=== PATIENT | male | born 1975 | race Two or more races ===

== ENCOUNTER 2016-07-30 13:08 | Inpatient (IN) | payer MEDICARE ==
[~2016-07-30] VITALS: Ht 177.8 cm; Wt 98.6 kg
[~2016-07-30 13:08] MED LIST: ALPR1TAB2 PO; CLON0.2T PO; GABA600T2 PO; HYDR-3241 PO; HYDR-3307 PO; METF500T4 PO; METH-356 PO; METO25TA35 PO; ONDA4TAB10 PO; POLY17PO5 PO; PROPOFOL 10 MG/ML, 50ML ONE
[2016-07-30 14:30] LABS: HEMOGLOBIN 14.8 g/dL (13.7-18.0)
[2016-07-30 14:42] LABS: ASPARTATE AMINO TRANSFERASE 12 U/L (15-37); BLOOD UREA NITROGEN 8 mg/dL (7-18)
[2016-07-30] MEDS ORDERED: DIPHENHYDRAMINE 50 MG/ML, 1ML IVPush SCH (15:00)
[2016-07-30] MEDS ORDERED: ACETAMINOPHEN 650 MG SUPP PR PRN (15:00)
[2016-07-30] MEDS ORDERED: LORazepam 1MG TABLET PO PRN ×2 (15:00→19:30)
[2016-07-30] MEDS ORDERED: ONDANSETRON 2MG/ML, 2ML IVPush PRN ×2 (15:00→18:00)
[2016-07-30] MEDS ORDERED: MORPHINE SULFATE 4 MG/ML, 1ML IVPush PRN (15:00)
[2016-07-30] MEDS ORDERED: POTASSIUM CHLORIDE 20 MEQ in LACTATED RINGERS 1,000 ML IV SCH (15:00)
[2016-07-30] MEDS ORDERED: hydrALAzine 20 MG/ML, 1ML IV PRN ×2 (15:00→18:00)
[2016-07-30] MEDS ORDERED: PLEASE ENTER HEIGHT AND WEIGHT MC SCH (15:00)
[2016-07-30] MEDS ORDERED: ACETAMINOPHEN 500 MG TABLET PO PRN (15:00)
[2016-07-30] MEDS ORDERED: OMNIPAQUE 350 MG/ML, 100ML BOTTLE ONE (15:56)
[2016-07-30 16:17] VITALS: BP 122/78
[2016-07-30] MEDS: PIPERACILLIN/TAZO/PMX 4.5GM 100 ML IV SCH ×2 (16:34→22:42)
[2016-07-30] MEDS ORDERED: LABETALOL 5MG/ML, 20ML IV PRN (18:00)
[2016-07-30 19:24] VITALS: BP 111/80
[2016-07-30] MEDS ORDERED: LORazepam 2 MG/ML, 1ML IV PRN (19:30)
[2016-07-30] MEDS ORDERED: SODIUM CHLORIDE 0.9%, 500ML IV PRN (19:30)
[2016-07-30] MEDS: HYDROcodone/APAP 5/325 TABLET PO PRN ×2 (20:01→23:58)
[2016-07-30] MEDS: POTASSIUM CHLORIDE 20 MEQ in D5%-0.45% NACL 1,000 ML IV SCH (20:01)
[2016-07-30] MEDS: ENOXAPARIN 40 MG/0.4 ML SQ SCH (20:01)
[2016-07-30] MEDS: INSULIN REGULAR, HUMAN 100 UNITS/ML, 3ML MEDIUM DOSE SS SQ-INSULIN SCH (21:00)
[2016-07-30] MEDS: FAMOTIDINE 20 MG/2 ML IVPush SCH (21:40)
[2016-07-30] MEDS: morphine SULFATE 10 MG/ML, 1ML IV PRN ×2 (21:41→22:29)
[2016-07-30] MEDS: GABAPENTIN 300 MG CAPSULE PO SCH (21:41)
[2016-07-30] MEDS: ONDANSETRON 2MG/ML, 2ML IV PRN (22:38)
[2016-07-31 00:05] VITALS: BP 125/73
[2016-07-31] MEDS: PIPERACILLIN/TAZO/PMX 4.5GM 100 ML IV SCH ×4 (04:07→22:23)
[2016-07-31] MEDS: HYDROcodone/APAP 5/325 TABLET PO PRN ×4 (04:08→20:43)
[2016-07-31 04:31] VITALS: BP 139/77
[2016-07-31] MEDS: ONDANSETRON 2MG/ML, 2ML IV PRN ×2 (04:46→18:01)
[2016-07-31 05:30] LABS: HEMOGLOBIN 13.1 g/dL (13.7-18.0)
[2016-07-31 05:35] LABS: BLOOD UREA NITROGEN 7 mg/dL (7-18)
[2016-07-31] MEDS: INSULIN REGULAR, HUMAN 100 UNITS/ML, 3ML MEDIUM DOSE SS SQ-INSULIN SCH ×4 (07:00→20:55)
[2016-07-31 07:16] VITALS: BP 112/86
[2016-07-31] MEDS: METHADONE 10 MG TABLET PO SCH (09:01)
[2016-07-31] MEDS: FAMOTIDINE 20 MG/2 ML IVPush SCH ×2 (09:01→20:42)
[2016-07-31] MEDS: GABAPENTIN 300 MG CAPSULE PO SCH ×2 (09:02→20:42)
[2016-07-31] MEDS: METOPROLOL TARTRATE 25 MG TABLET PO SCH (09:02)
[2016-07-31 13:06] VITALS: BP 97/61
[2016-07-31 20:26] VITALS: BP 135/89
[2016-07-31] MEDS: ENOXAPARIN 40 MG/0.4 ML SQ SCH (20:42)
[2016-08-01] MEDS: HYDROcodone/APAP 5/325 TABLET PO PRN ×3 (00:03→21:17)
[2016-08-01] MEDS: POTASSIUM CHLORIDE 20 MEQ in D5%-0.45% NACL 1,000 ML IV SCH ×2 (00:04→22:43)
[2016-08-01 01:06] VITALS: BP 132/80
[2016-08-01] MEDS: ONDANSETRON 2MG/ML, 2ML IV PRN (04:28)
[2016-08-01] MEDS: morphine SULFATE 10 MG/ML, 1ML IV PRN ×3 (04:28→13:52)
[2016-08-01] MEDS: PIPERACILLIN/TAZO/PMX 4.5GM 100 ML IV SCH ×4 (04:28→21:15)
[2016-08-01 05:51] LABS: HEMOGLOBIN 12.3 g/dL (13.7-18.0)
[2016-08-01] MEDS: INSULIN REGULAR, HUMAN 100 UNITS/ML, 3ML MEDIUM DOSE SS SQ-INSULIN SCH ×4 (07:37→21:00)
[2016-08-01 08:08] VITALS: BP 126/72
[2016-08-01] MEDS: METOPROLOL TARTRATE 25 MG TABLET PO SCH (09:00)
[2016-08-01] MEDS: FAMOTIDINE 20 MG/2 ML IVPush SCH ×2 (09:00→21:14)
[2016-08-01] MEDS: METHADONE 10 MG TABLET PO SCH (09:00)
[2016-08-01] MEDS: GABAPENTIN 300 MG CAPSULE PO SCH ×2 (09:00→21:14)
[2016-08-01] MEDS ORDERED: FENTANYL PF 250 MCG/5ML ONE (10:05)
[2016-08-01] MEDS ORDERED: MIDAZOLAM 1 MG/ML, 2ML ONE (10:05)
[2016-08-01] MEDS ORDERED: METOPROLOL 1 MG/ML, 5ML ONE (10:08)
[2016-08-01] MEDS ORDERED: PROPOFOL 10 MG/ML, 20ML ONE (10:08)
[2016-08-01] MEDS ORDERED: PROPOFOL 10 MG/ML, 50ML ONE (10:08)
[2016-08-01] MEDS ORDERED: HYDROmorphone 1 MG/ML, 1ML IV PRN (11:00)
[2016-08-01] MEDS ORDERED: FENTANYL PF 100 MCG/2ML IV PRN (11:00)
[2016-08-01] MEDS ORDERED: ALBUTEROL/IPRATROPIUM 2.5MG/0.5MG, 3 ML NPPB PRN (11:00)
[2016-08-01] MEDS ORDERED: OXYcodone 5 MG/5 ML ORAL.SOL UDC PO PRN (11:00)
[2016-08-01] MEDS ORDERED: METOPROLOL 1 MG/ML, 5ML IV PRN (11:00)
[2016-08-01] MEDS ORDERED: ACETAMINOPHEN 325 MG TABLET PO PRN (11:00)
[2016-08-01 12:21] VITALS: BP 122/81
[2016-08-01] MEDS ORDERED: MORPHINE SULFATE 4 MG/ML, 1ML ONE (13:50)
[2016-08-01 14:46] VITALS: BP 125/65
[2016-08-01 19:40] VITALS: BP 107/60
[2016-08-01] MEDS: ENOXAPARIN 40 MG/0.4 ML SQ SCH (21:15)
[2016-08-02 00:16] VITALS: BP 126/71
[2016-08-02] MEDS: PIPERACILLIN/TAZO/PMX 4.5GM 100 ML IV SCH ×4 (04:17→21:57)
[2016-08-02 05:12] VITALS: BP 116/71
[2016-08-02] MEDS: INSULIN REGULAR, HUMAN 100 UNITS/ML, 3ML MEDIUM DOSE SS SQ-INSULIN SCH ×2 (07:00→11:00)
[2016-08-02 07:50] VITALS: BP 110/77
[2016-08-02 07:52] VITALS: BP 140/73
[2016-08-02] MEDS: FAMOTIDINE 20 MG/2 ML IVPush SCH ×2 (08:21→20:33)
[2016-08-02] MEDS: GABAPENTIN 300 MG CAPSULE PO SCH ×2 (08:21→20:33)
[2016-08-02] MEDS: METOPROLOL TARTRATE 25 MG TABLET PO SCH (08:21)
[2016-08-02] MEDS: HYDROcodone/APAP 5/325 TABLET PO PRN ×2 (08:22→20:35)
[2016-08-02] MEDS: METHADONE 10 MG TABLET PO SCH (08:22)
[2016-08-02 13:01] VITALS: BP 111/67
[2016-08-02] MEDS: ALPRazolam 1MG TABLET PO PRN (15:34)
[2016-08-02] MEDS: POTASSIUM CHLORIDE 20 MEQ in D5%-0.45% NACL 1,000 ML IV SCH (16:00)
[2016-08-02 19:33] VITALS: BP 121/69
[2016-08-02] MEDS: ENOXAPARIN 40 MG/0.4 ML SQ SCH (20:33)
[2016-08-03] MEDS: FAMOTIDINE 20 MG TABLET PO SCH ×3 (00:15→21:00)
[2016-08-03] MEDS: GABAPENTIN 300 MG CAPSULE PO SCH ×3 (00:15→21:00)
[2016-08-03] MEDS: PIPERACILLIN/TAZO/PMX 4.5GM 100 ML IV SCH ×3 (04:14→18:00)
[2016-08-03 04:32] VITALS: BP 118/71
[2016-08-03] MEDS: morphine SULFATE 10 MG/ML, 1ML IV PRN (05:55)
[2016-08-03 07:10] VITALS: BP 128/77
[2016-08-03] MEDS ORDERED: VANCOMYCIN PER PHARMACY MC PRN (08:30)
[2016-08-03] MEDS ORDERED: PHARMACOKINETIC MONITORING MC PRN (09:00)
[2016-08-03] MEDS ORDERED: PHARMACOKINETIC CONSULTATION MC ONE (09:00)
[2016-08-03] MEDS: POTASSIUM CHLORIDE 20 MEQ in D5%-0.45% NACL 1,000 ML IV SCH (09:47)
[2016-08-03] MEDS: VANCOMYCIN 2,000 MG in SODIUM CHLORIDE 0.9% 500 ML IV SCH ×2 (09:47→21:00)
[2016-08-03] MEDS: METOPROLOL TARTRATE 25 MG TABLET PO SCH (09:47)
[2016-08-03] MEDS: METHADONE 10 MG TABLET PO SCH (09:48)
[2016-08-03] MEDS: HYDROcodone/APAP 5/325 TABLET PO PRN ×2 (09:50→13:55)
[2016-08-03] MEDS ORDERED: PROPOFOL 10 MG/ML, 20ML ONE (10:15)
[2016-08-03] MEDS: DIPHENHYDRAMINE 12.5MG/5ML, 10ML UDC PO PRN (12:12)
[2016-08-03 15:00] VITALS: BP 127/73
[2016-08-03 19:58] VITALS: BP 131/79
[2016-08-03] MEDS: ENOXAPARIN 40 MG/0.4 ML SQ SCH (20:00)
[2016-08-03] MEDS ORDERED: LABETALOL 5MG/ML, 20ML IV PRN (22:30)
[2016-08-03] MEDS ORDERED: FENTANYL PF 100 MCG/2ML IV PRN (22:30)
[2016-08-03] MEDS ORDERED: hydrALAzine 20 MG/ML, 1ML IV PRN (22:30)
[2016-08-03] MEDS ORDERED: METOCLOPRAMIDE 5 MG/ML, 2ML IV PRN (22:30)
[2016-08-03] MEDS ORDERED: ACETAMINOPHEN 325 MG TABLET PO PRN (22:30)
[2016-08-03] MEDS ORDERED: OXYcodone 5 MG/5 ML ORAL.SOL UDC PO PRN (22:30)
[2016-08-03] MEDS ORDERED: HYDROmorphone 1 MG/ML, 1ML IV PRN (22:30)
[2016-08-03] MEDS ORDERED: MIDAZOLAM 1 MG/ML, 2ML IV PRN (22:30)
[2016-08-03] MEDS ORDERED: PROMETHAZINE 25 MG/ML, 1ML IV PRN (22:30)
[2016-08-03] MEDS ORDERED: ONDANSETRON 2MG/ML, 2ML IVPush PRN (22:30)
[2016-08-03] MEDS ORDERED: MEPERIDINE/PF 25MG/0.5ML IVPush PRN (22:30)
[2016-08-03] MEDS ORDERED: MEPERIDINE/PF 25MG/0.5ML ONE (22:44)
[2016-08-04] MEDS: PIPERACILLIN/TAZO/PMX 4.5GM 100 ML IV SCH ×4 (00:15→18:26)
[2016-08-04] MEDS: DIPHENHYDRAMINE 12.5MG/5ML, 10ML UDC PO PRN ×2 (00:15→11:17)
[2016-08-04] MEDS: HYDROcodone/APAP 5/325 TABLET PO PRN ×6 (00:15→22:15)
[2016-08-04] MEDS: ONDANSETRON 2MG/ML, 2ML IV PRN (00:15)
[2016-08-04] MEDS: VANCOMYCIN 2,000 MG in SODIUM CHLORIDE 0.9% 500 ML IV SCH ×2 (01:00→13:09)
[2016-08-04 04:08] VITALS: BP 136/74
[2016-08-04 07:13] VITALS: BP 122/74
[2016-08-04] MEDS: FAMOTIDINE 20 MG TABLET PO SCH ×2 (09:00→21:30)
[2016-08-04] MEDS: METHADONE 10 MG TABLET PO SCH (09:00)
[2016-08-04] MEDS: METOPROLOL TARTRATE 25 MG TABLET PO SCH (09:00)
[2016-08-04] MEDS: GABAPENTIN 300 MG CAPSULE PO SCH ×2 (09:00→21:30)
[2016-08-04] MEDS ORDERED: DIPHENHYDRAMINE 25 MG CAPSULE PO PRN ×2 (11:22→17:22)
[2016-08-04] MEDS: DIPHENHYDRAMINE 25 MG CAPSULE PO PRN (12:15)
[2016-08-04] MEDS: POTASSIUM CHLORIDE 20 MEQ in D5%-0.45% NACL 1,000 ML IV SCH (13:09)
[2016-08-04 13:43] VITALS: BP 123/71
[2016-08-04 19:26] VITALS: BP 115/65
[2016-08-04] MEDS: ENOXAPARIN 40 MG/0.4 ML SQ SCH (21:30)
[2016-08-05] MEDS: PIPERACILLIN/TAZO/PMX 4.5GM 100 ML IV SCH ×5 (00:22→23:51)
[2016-08-05] MEDS: DIPHENHYDRAMINE 25 MG CAPSULE PO PRN ×2 (00:55→13:40)
[2016-08-05] MEDS: VANCOMYCIN 2,000 MG in SODIUM CHLORIDE 0.9% 500 ML IV SCH ×2 (00:58→13:39)
[2016-08-05 01:52] VITALS: BP 121/63
[2016-08-05] MEDS: HYDROcodone/APAP 5/325 TABLET PO PRN ×4 (06:22→22:01)
[2016-08-05 08:15] VITALS: BP 142/83
[2016-08-05] MEDS: METOPROLOL TARTRATE 25 MG TABLET PO SCH (09:15)
[2016-08-05] MEDS: FAMOTIDINE 20 MG TABLET PO SCH ×2 (09:15→22:00)
[2016-08-05] MEDS: GABAPENTIN 300 MG CAPSULE PO SCH ×2 (09:15→22:00)
[2016-08-05] MEDS: METHADONE 10 MG TABLET PO SCH (09:15)
[2016-08-05] MEDS: ALPRazolam 1MG TABLET PO PRN (10:13)
[2016-08-05 13:24] VITALS: BP 109/67
[2016-08-05] MEDS: POTASSIUM CHLORIDE 20 MEQ in D5%-0.45% NACL 1,000 ML IV SCH (13:42)
[2016-08-05 18:51] VITALS: BP 138/77
[2016-08-05] MEDS: ENOXAPARIN 40 MG/0.4 ML SQ SCH (22:01)
[2016-08-05] MEDS: morphine SULFATE 10 MG/ML, 1ML IV PRN (23:50)
[2016-08-06 03:50] VITALS: BP 154/82
[2016-08-06] MEDS: PIPERACILLIN/TAZO/PMX 4.5GM 100 ML IV SCH ×3 (06:00→18:07)
[2016-08-06] MEDS ORDERED: PROPOFOL 10 MG/ML, 20ML ONE (06:55)
[2016-08-06] MEDS ORDERED: LABETALOL 5MG/ML, 20ML IV PRN (08:30)
[2016-08-06] MEDS ORDERED: FENTANYL PF 100 MCG/2ML IV PRN (08:30)
[2016-08-06] MEDS ORDERED: HYDROmorphone 1 MG/ML, 1ML IV PRN (08:30)
[2016-08-06] MEDS ORDERED: OXYcodone 5 MG/5 ML ORAL.SOL UDC PO PRN (08:30)
[2016-08-06] MEDS ORDERED: hydrALAzine 20 MG/ML, 1ML IV PRN (08:30)
[2016-08-06] MEDS ORDERED: PROMETHAZINE 25 MG/ML, 1ML IV PRN (08:30)
[2016-08-06] MEDS ORDERED: ONDANSETRON 2MG/ML, 2ML IVPush PRN (08:30)
[2016-08-06] MEDS ORDERED: MIDAZOLAM 1 MG/ML, 2ML IV PRN (08:30)
[2016-08-06 08:36] VITALS: BP 169/99
[2016-08-06] MEDS: METOPROLOL TARTRATE 25 MG TABLET PO SCH (08:38)
[2016-08-06] MEDS: METHADONE 10 MG TABLET PO SCH (08:39)
[2016-08-06] MEDS: GABAPENTIN 300 MG CAPSULE PO SCH ×2 (08:39→21:30)
[2016-08-06] MEDS: FAMOTIDINE 20 MG TABLET PO SCH ×2 (08:39→21:30)
[2016-08-06] MEDS: HYDROcodone/APAP 5/325 TABLET PO PRN ×4 (08:43→23:33)
[2016-08-06] MEDS: POTASSIUM CHLORIDE 20 MEQ in D5%-0.45% NACL 1,000 ML IV SCH (14:00)
[2016-08-06 16:15] VITALS: BP 149/79
[2016-08-06 18:44] VITALS: BP 127/73
[2016-08-06] MEDS: morphine SULFATE 10 MG/ML, 1ML IV PRN (21:30)
[2016-08-06] MEDS: ENOXAPARIN 40 MG/0.4 ML SQ SCH (21:34)
[2016-08-06 23:43] VITALS: BP 130/82
[2016-08-07] MEDS: PIPERACILLIN/TAZO/PMX 4.5GM 100 ML IV SCH ×4 (00:37→20:26)
[2016-08-07] MEDS: HYDROcodone/APAP 5/325 TABLET PO PRN ×5 (03:39→21:48)
[2016-08-07 07:35] VITALS: BP 145/85
[2016-08-07] MEDS: FAMOTIDINE 20 MG TABLET PO SCH ×2 (08:14→20:26)
[2016-08-07] MEDS: GABAPENTIN 300 MG CAPSULE PO SCH ×2 (08:14→20:26)
[2016-08-07] MEDS: METOPROLOL TARTRATE 25 MG TABLET PO SCH (08:14)
[2016-08-07] MEDS: METHADONE 10 MG TABLET PO SCH (09:11)
[2016-08-07] MEDS ORDERED: VANCOMYCIN 2,000 MG in SODIUM CHLORIDE 0.9% 500 ML IV ONE (11:00)
[2016-08-07] MEDS: morphine SULFATE 10 MG/ML, 1ML IV PRN ×3 (11:22→20:25)
[2016-08-07] MEDS: DIPHENHYDRAMINE 25 MG CAPSULE PO PRN (11:22)
[2016-08-07 18:33] VITALS: BP 149/87
[2016-08-07] MEDS: POTASSIUM CHLORIDE 20 MEQ in D5%-0.45% NACL 1,000 ML IV SCH (20:26)
[2016-08-07] MEDS: ENOXAPARIN 40 MG/0.4 ML SQ SCH (21:48)
[2016-08-08 00:52] VITALS: BP 121/65
[2016-08-08] MEDS: HYDROcodone/APAP 5/325 TABLET PO PRN ×6 (01:32→22:25)
[2016-08-08] MEDS: PIPERACILLIN/TAZO/PMX 4.5GM 100 ML IV SCH ×4 (02:28→20:52)
[2016-08-08] MEDS: morphine SULFATE 10 MG/ML, 1ML IV PRN ×3 (05:10→20:53)
[2016-08-08 07:07] VITALS: BP 144/79
[2016-08-08] MEDS: METOPROLOL TARTRATE 25 MG TABLET PO SCH (07:44)
[2016-08-08] MEDS: FAMOTIDINE 20 MG TABLET PO SCH ×2 (07:44→20:52)
[2016-08-08] MEDS: GABAPENTIN 300 MG CAPSULE PO SCH ×2 (07:44→21:14)
[2016-08-08] MEDS: METHADONE 10 MG TABLET PO SCH (07:45)
[2016-08-08 15:12] VITALS: BP 132/74
[2016-08-08 18:58] VITALS: BP 155/77
[2016-08-08] MEDS: POTASSIUM CHLORIDE 20 MEQ in D5%-0.45% NACL 1,000 ML IV SCH (20:52)
[2016-08-08] MEDS: ENOXAPARIN 40 MG/0.4 ML SQ SCH (20:52)
[2016-08-08] MEDS: ALPRazolam 1MG TABLET PO PRN (22:25)
[2016-08-09] MEDS: PIPERACILLIN/TAZO/PMX 4.5GM 100 ML IV SCH ×4 (02:20→20:22)
[2016-08-09] MEDS: morphine SULFATE 10 MG/ML, 1ML IV PRN ×3 (03:31→20:23)
[2016-08-09 03:34] VITALS: BP 125/75
[2016-08-09 05:41] LABS: ASPARTATE AMINO TRANSFERASE 10 U/L (15-37); BLOOD UREA NITROGEN 12 mg/dL (7-18)
[2016-08-09] MEDS ORDERED: VANCOMYCIN 2,000 MG in SODIUM CHLORIDE 0.9% 500 ML IV ONE (06:00)
[2016-08-09] MEDS: DIPHENHYDRAMINE 25 MG CAPSULE PO PRN (06:11)
[2016-08-09] MEDS: HYDROcodone/APAP 5/325 TABLET PO PRN ×2 (06:16→22:52)
[2016-08-09 07:49] VITALS: BP 150/84
[2016-08-09] MEDS: METOPROLOL TARTRATE 25 MG TABLET PO SCH (08:43)
[2016-08-09] MEDS: GABAPENTIN 300 MG CAPSULE PO SCH ×2 (08:43→20:22)
[2016-08-09] MEDS: FAMOTIDINE 20 MG TABLET PO SCH ×2 (08:43→20:22)
[2016-08-09] MEDS: METHADONE 10 MG TABLET PO SCH (08:45)
[2016-08-09 13:41] VITALS: BP 115/70
[2016-08-09] MEDS ORDERED: FENTANYL PF 250 MCG/5ML ONE (15:15)
[2016-08-09] MEDS ORDERED: MIDAZOLAM 1 MG/ML, 2ML ONE (15:16)
[2016-08-09] MEDS ORDERED: PROPOFOL 10 MG/ML, 20ML ONE (15:55)
[2016-08-09] MEDS ORDERED: PROPOFOL 10 MG/ML, 50ML ONE (15:55)
[2016-08-09] MEDS ORDERED: NITROGLYCERIN 5 MG/ML, 10ML ONE (15:58)
[2016-08-09] MEDS ORDERED: ALBUTEROL SULFATE 2.5 MG/3 ML NPPB PRN (17:30)
[2016-08-09] MEDS ORDERED: LABETALOL 5MG/ML, 20ML IV PRN (17:30)
[2016-08-09] MEDS ORDERED: FENTANYL PF 100 MCG/2ML IV PRN (17:30)
[2016-08-09] MEDS ORDERED: hydrALAzine 20 MG/ML, 1ML IV PRN (17:30)
[2016-08-09] MEDS ORDERED: HYDROcodone/APAP 7.5-325MG/15ML UDC PO PRN (17:30)
[2016-08-09] MEDS ORDERED: HYDROmorphone 1 MG/ML, 1ML IV PRN (17:30)
[2016-08-09] MEDS ORDERED: ACETAMINOPHEN 325 MG TABLET PO PRN (17:30)
[2016-08-09] MEDS ORDERED: ONDANSETRON 2MG/ML, 2ML IVPush PRN (17:30)
[2016-08-09 19:25] VITALS: BP 121/66
[2016-08-09] MEDS: ENOXAPARIN 40 MG/0.4 ML SQ SCH (20:22)
[2016-08-09 23:21] VITALS: BP 104/65
[2016-08-10] MEDS: PIPERACILLIN/TAZO/PMX 4.5GM 100 ML IV SCH ×2 (02:28→08:44)
[2016-08-10] MEDS: POTASSIUM CHLORIDE 20 MEQ in D5%-0.45% NACL 1,000 ML IV SCH (02:29)
[2016-08-10] MEDS: morphine SULFATE 10 MG/ML, 1ML IV PRN ×3 (02:41→11:48)
[2016-08-10 03:01] VITALS: BP 144/68
[2016-08-10] MEDS: HYDROcodone/APAP 5/325 TABLET PO PRN (06:34)
[2016-08-10 07:22] VITALS: BP 134/76
[2016-08-10] MEDS: FAMOTIDINE 20 MG TABLET PO SCH (08:47)
[2016-08-10] MEDS: GABAPENTIN 300 MG CAPSULE PO SCH (08:47)
[2016-08-10] MEDS: METOPROLOL TARTRATE 25 MG TABLET PO SCH (08:47)
[2016-08-10] MEDS: METHADONE 10 MG TABLET PO SCH (08:47)
[2016-08-10 14:41] VITALS: BP 136/79
== END 2016-08-10 15:23 | disposition home or self-care (01) | DRG 857 ==
LOC: 4NOR 13:18
PROVIDERS: ADMIT Surgery; ATTEND Surgery
PROC: 0JB80ZZ Excision of Abdomen Subcutaneous Tissue and Fascia, Open Approach (ICD-10-PCS; 2016-07-30)
PROC: 0JQ80ZZ Repair Abdomen Subcutaneous Tissue and Fascia, Open Approach (ICD-10-PCS; principal; 2016-07-30 17:00)
PROC: 2W03X6Z Change Pressure Dressing on Abdominal Wall (ICD-10-PCS; 2016-08-03)
PROC: 0HQ7XZZ Repair Abdomen Skin, External Approach (ICD-10-PCS; 2016-08-03)
PROC: 0JB80ZZ Excision of Abdomen Subcutaneous Tissue and Fascia, Open Approach (ICD-10-PCS; 2016-08-06)
PROC: 02HV33Z Insertion of Infusion Device into Superior Vena Cava, Percutaneous Approach (ICD-10-PCS; 2016-08-06)
PROC: B5181ZA Fluoroscopy of Superior Vena Cava using Low Osmolar Contrast, Guidance (ICD-10-PCS; 2016-08-06)
PROC: 0JB80ZZ Excision of Abdomen Subcutaneous Tissue and Fascia, Open Approach (ICD-10-PCS; 2016-08-09)
PROC: 2W13X6Z Compression of Abdominal Wall using Pressure Dressing (ICD-10-PCS; 2016-08-09)
DX: T81.4XXA Infection following a procedure, initial encounter (principal); T81.31XA Disruption of external operation (surgical) wound, not elsewhere classified, initial encounter; G82.20 Paraplegia, unspecified; E44.0 Moderate protein-calorie malnutrition; E11.9 Type 2 diabetes mellitus without complications; Y84.9 Medical procedure, unspecified as the cause of abnormal reaction of the patient, or of later complication, without mention of misadventure at the time of the procedure; E66.01 Morbid (severe) obesity due to excess calories; B95.62 Methicillin resistant Staphylococcus aureus infection as the cause of diseases classified elsewhere; F17.210 Nicotine dependence, cigarettes, uncomplicated; I10 Essential (primary) hypertension; J44.9 Chronic obstructive pulmonary disease, unspecified; K43.5 Parastomal hernia without obstruction or gangrene; Z88.0 Allergy status to penicillin; Z68.31 Body mass index [BMI] 31.0-31.9, adult; Y92.9 Unspecified place or not applicable; Z98.890 Other specified postprocedural states; Z71.6 Tobacco abuse counseling
CPT/HCPCS: 36415; 36569; 74177; 76937; 77001; 80048; 80053; 80202; 82040; 82565; 82962; 83735; 84100; 85025; 85610; 85730; 87070; 87075; 87077; 87186; 87205; J1650; J2175; J2250; J2405; J2543; J2704; J3010; J3370; J3480; Q9967; C1751; J2270; J7040; J7120; Q0163; S0028

== ENCOUNTER 2016-08-24 08:15 | Inpatient (IN) | payer MEDICARE ==
[~2016-08-24] VITALS: Ht 180.3 cm; Wt 100.6 kg
[~2016-08-24 08:15] MED LIST changes: -PROPOFOL 10 MG/ML, 50ML ONE
[2016-08-24] MEDS ORDERED: LIDOCAINE 1%, 2ML ONE (08:52)
[2016-08-24 09:11] VITALS: BP 101/66
[2016-08-24] MEDS ORDERED: LACTATED RINGERS 1,000 ML IV SCH (09:18)
[2016-08-24] MEDS ORDERED: LIDOCAINE 1%, 2ML SQ PRN (09:30)
[2016-08-24] MEDS ORDERED: HYDROmorphone 2 MG/ML, 1ML ONE ×2 (09:38→15:42)
[2016-08-24] MEDS ORDERED: FENTANYL PF 250 MCG/5ML ONE (09:38)
[2016-08-24] MEDS ORDERED: MIDAZOLAM 1 MG/ML, 2ML ONE (09:38)
[2016-08-24] MEDS ORDERED: EPINEPHRINE 1 MG/ML, 1ML ONE (10:13)
[2016-08-24] MEDS ORDERED: NITROGLYCERIN 5 MG/ML, 10ML ONE (10:13)
[2016-08-24] MEDS ORDERED: DEXAMETHASONE 4 MG/ML, 1ML ONE (10:35)
[2016-08-24] MEDS ORDERED: ROCURONIUM 10 MG/ML ONE (10:35)
[2016-08-24] MEDS ORDERED: PROPOFOL 10 MG/ML, 20ML ONE (10:35)
[2016-08-24] MEDS ORDERED: ESMOLOL 100 MG/10 ML ONE (10:35)
[2016-08-24] MEDS ORDERED: EPHEDRINE 50 MG/ML, 1ML ONE (10:35)
[2016-08-24] MEDS ORDERED: CEFAZOLIN 1,000 MG ONE (10:35)
[2016-08-24] MEDS ORDERED: ONDANSETRON 2MG/ML, 2ML ONE (10:35)
[2016-08-24] MEDS ORDERED: PHENYLEPHRINE 10 MG/ML ONE (10:35)
[2016-08-24] MEDS ORDERED: GLYCOPYRROLATE 0.2MG/1ML ONE (10:35)
[2016-08-24] MEDS ORDERED: NEOSTIGMINE 1 MG/ML, 10ML ONE (10:35)
[2016-08-24] MEDS ORDERED: MEPERIDINE/PF 25MG/0.5ML IVPush PRN (11:30)
[2016-08-24] MEDS ORDERED: FENTANYL PF 100 MCG/2ML IV PRN (11:30)
[2016-08-24] MEDS ORDERED: METOCLOPRAMIDE 5 MG/ML, 2ML IV PRN (11:30)
[2016-08-24] MEDS ORDERED: ACETAMINOPHEN 325 MG TABLET PO PRN ×2 (11:30→18:00)
[2016-08-24] MEDS ORDERED: LABETALOL 5MG/ML, 20ML IV PRN (11:30)
[2016-08-24] MEDS ORDERED: MIDAZOLAM 1 MG/ML, 2ML IV PRN (11:30)
[2016-08-24] MEDS ORDERED: OXYcodone 5 MG/5 ML ORAL.SOL UDC PO PRN (11:30)
[2016-08-24] MEDS ORDERED: PROMETHAZINE 25 MG/ML, 1ML IV PRN (11:30)
[2016-08-24] MEDS ORDERED: hydrALAzine 20 MG/ML, 1ML IV PRN ×2 (11:30→18:00)
[2016-08-24] MEDS ORDERED: ONDANSETRON 2MG/ML, 2ML IVPush PRN (11:30)
[2016-08-24] MEDS ORDERED: OXYMETAZOLINE NASAL SPRAY 0.05%, 15ML ONE (14:56)
[2016-08-24 14:57] LABS: HEMOGLOBIN 12.3 g/dL (13.7-18.0)
[2016-08-24 15:12] LABS: BLOOD UREA NITROGEN 13 mg/dL (7-18)
[2016-08-24 15:23] LABS: DIFF TOTAL CELLS COUNTED 100 CELL DIFF
[2016-08-24 15:25] LABS: VERIFY COUNTS? YES
[2016-08-24] MEDS: HYDROmorphone 1 MG/ML, 1ML IV PRN ×7 (15:30→22:01)
[2016-08-24] MEDS ORDERED: DIPHENHYDRAMINE 25 MG CAPSULE PO PRN (18:00)
[2016-08-24] MEDS ORDERED: ALPRazolam 1MG TABLET PO PRN (18:00)
[2016-08-24] MEDS ORDERED: SODIUM CHLORIDE 0.9%, 500ML IV PRN (18:00)
[2016-08-24] MEDS ORDERED: ACETAMINOPHEN 650 MG SUPP PR PRN (18:00)
[2016-08-24] MEDS ORDERED: LORazepam 2 MG/ML, 1ML IV PRN (18:00)
[2016-08-24] MEDS: ENOXAPARIN 40 MG/0.4 ML SQ SCH (19:02)
[2016-08-24 19:45] VITALS: BP 136/78
[2016-08-24] MEDS ORDERED: BENZOCAINE AEROSOL SPRAY 20%, 60ML TP ONE (21:30)
[2016-08-24] MEDS: GABAPENTIN 300 MG CAPSULE PO SCH (22:00)
[2016-08-24] MEDS ORDERED: VANCOMYCIN PMX 1GM/200ML 200 ML IVPB ONE (23:00)
[2016-08-24] MEDS: DIPHENHYDRAMINE 50 MG/ML, 1ML IV PRN (23:21)
[2016-08-24 23:54] VITALS: BP 136/47
[2016-08-25] VITALS (10 sets, daily range): BP systolic 90–120; BP diastolic 52–70
[2016-08-25] MEDS: HYDROmorphone 1 MG/ML, 1ML IV PRN ×6 (00:17→18:26)
[2016-08-25] MEDS: LACTATED RINGERS 1,000 ML IV SCH ×2 (00:18→18:24)
[2016-08-25] MEDS: ONDANSETRON 2MG/ML, 2ML IV PRN ×2 (02:14→18:36)
[2016-08-25 05:56] LABS: HEMOGLOBIN 11.6 g/dL (13.7-18.0)
[2016-08-25 06:09] LABS: BLOOD UREA NITROGEN 12 mg/dL (7-18)
[2016-08-25 06:16] LABS: DIFF TOTAL CELLS COUNTED 100 CELL DIFF
[2016-08-25 06:18] LABS: VERIFY COUNTS? YES
[2016-08-25 06:19] LABS: POLYCHROMASIA 1+
[2016-08-25] MEDS ORDERED: LACTATED RINGERS 1,000 ML IVBOLUS ONE ×2 (07:30→09:00)
[2016-08-25] MEDS: METOPROLOL TARTRATE 25 MG TABLET PO SCH ×2 (09:00→10:04)
[2016-08-25] MEDS: GABAPENTIN 300 MG CAPSULE PO SCH ×2 (09:36→20:17)
[2016-08-25] MEDS: METHADONE 10 MG TABLET PO SCH (09:36)
[2016-08-25] MEDS: ENOXAPARIN 40 MG/0.4 ML SQ SCH (19:20)
[2016-08-25] MEDS: LORazepam 1MG TABLET PO PRN ×2 (19:21→20:17)
[2016-08-25] MEDS: LABETALOL 5MG/ML, 20ML IVPush PRN (23:59)
[2016-08-26 00:11] LABS: IS PT STATUS REG ER OR PRE ER? NO
[2016-08-26] MEDS: ONDANSETRON 2MG/ML, 2ML IV PRN ×3 (00:37→18:42)
[2016-08-26 00:41] VITALS: BP 98/63
[2016-08-26 02:25] VITALS: BP 102/64
[2016-08-26 03:55] VITALS: BP 103/58
[2016-08-26] MEDS: LACTATED RINGERS 1,000 ML IV SCH ×3 (04:37→19:53)
[2016-08-26] MEDS ORDERED: LACTATED RINGERS 500 ML IVBOLUS ONE (05:00)
[2016-08-26 05:57] LABS: HEMOGLOBIN 10.8 g/dL (13.7-18.0)
[2016-08-26 06:24] LABS: BLOOD UREA NITROGEN 19 mg/dL (7-18)
[2016-08-26 07:21] VITALS: BP 136/63
[2016-08-26] MEDS: LABETALOL 5MG/ML, 20ML IVPush PRN ×2 (07:34→17:33)
[2016-08-26] MEDS: PROMETHAZINE 25 MG/ML, 1ML IM PRN ×4 (07:35→21:38)
[2016-08-26] MEDS: GABAPENTIN 300 MG CAPSULE PO SCH ×2 (09:00→20:24)
[2016-08-26] MEDS: METHADONE 10 MG TABLET PO SCH (09:00)
[2016-08-26 13:30] VITALS: BP 147/71
[2016-08-26] MEDS ORDERED: PHARMACOKINETIC MONITORING MC PRN (16:30)
[2016-08-26] MEDS ORDERED: VANCOMYCIN PER PHARMACY MC PRN (16:30)
[2016-08-26] MEDS: CEFTRIAXONE PMX 2GM/50ML 50 ML IV SCH (17:31)
[2016-08-26] MEDS: DIPHENHYDRAMINE 50 MG/ML, 1ML IV PRN (17:54)
[2016-08-26 18:40] VITALS: BP 128/66
[2016-08-26] MEDS: METRONIDAZOLE PMX 500MG/100ML 100 ML IV SCH (18:42)
[2016-08-26] MEDS: ENOXAPARIN 40 MG/0.4 ML SQ SCH (18:50)
[2016-08-26] MEDS ORDERED: LACTATED RINGERS 1,000 ML IVBOLUS ONE (19:00)
[2016-08-26] MEDS: VANCOMYCIN 2,200 MG in SODIUM CHLORIDE 0.9% 500 ML IV SCH (19:52)
[2016-08-26] MEDS: HYDROmorphone 1 MG/ML, 1ML IV PRN (20:58)
[2016-08-26] MEDS ORDERED: metroNIDAZOLE 5 MG/ML INJ 500 MG in SYRINGE 1 EA IV SCH (21:00)
[2016-08-27] MEDS: METRONIDAZOLE PMX 500MG/100ML 100 ML IV SCH ×3 (02:59→18:31)
[2016-08-27] MEDS: HYDROmorphone 1 MG/ML, 1ML IV PRN ×5 (03:13→21:35)
[2016-08-27] MEDS: ONDANSETRON 2MG/ML, 2ML IV PRN ×3 (03:13→17:26)
[2016-08-27 03:30] VITALS: BP 133/73
[2016-08-27] MEDS: PROMETHAZINE 25 MG/ML, 1ML IM PRN ×3 (04:56→21:34)
[2016-08-27 05:40] LABS: HEMOGLOBIN 10.1 g/dL (13.7-18.0)
[2016-08-27 05:45] LABS: ASPARTATE AMINO TRANSFERASE 10 U/L (15-37); BLOOD UREA NITROGEN 16 mg/dL (7-18)
[2016-08-27] MEDS: LACTATED RINGERS 1,000 ML IV SCH ×2 (06:02→21:00)
[2016-08-27 06:57] VITALS: BP 147/80
[2016-08-27] MEDS ORDERED: POTASSIUM PHOSPHATE 44 MEQ in SODIUM CHLORIDE 0.9% 500 ML IV ONE (07:30)
[2016-08-27] MEDS ORDERED: MAGNESIUM SULFATE PMX 2GM/50ML 50 ML IV ONE (07:30)
[2016-08-27] MEDS ORDERED: POTASSIUM CHLORIDE 40 MEQ in SODIUM CHLORIDE 0.9% 500 ML IV ONE (07:30)
[2016-08-27] MEDS: METOPROLOL TARTRATE 25 MG TABLET PO SCH (08:40)
[2016-08-27] MEDS: GABAPENTIN 300 MG CAPSULE PO SCH ×3 (08:40→21:35)
[2016-08-27] MEDS: METHADONE 10 MG TABLET PO SCH (08:40)
[2016-08-27 13:45] VITALS: BP 114/68
[2016-08-27] MEDS: DIPHENHYDRAMINE 50 MG/ML, 1ML IV PRN (14:06)
[2016-08-27] MEDS: VANCOMYCIN 2,200 MG in SODIUM CHLORIDE 0.9% 500 ML IV SCH (14:39)
[2016-08-27] MEDS: CEFTRIAXONE PMX 2GM/50ML 50 ML IV SCH (16:51)
[2016-08-27] MEDS: ENOXAPARIN 40 MG/0.4 ML SQ SCH (18:31)
[2016-08-27 20:49] VITALS: BP 111/70
[2016-08-28] MEDS: ONDANSETRON 2MG/ML, 2ML IV PRN ×3 (00:55→22:38)
[2016-08-28] MEDS: HYDROmorphone 1 MG/ML, 1ML IV PRN (00:55)
[2016-08-28] MEDS: METRONIDAZOLE PMX 500MG/100ML 100 ML IV SCH ×3 (02:16→18:04)
[2016-08-28 02:25] VITALS: BP 114/69
[2016-08-28 05:47] LABS: BLOOD UREA NITROGEN 11 mg/dL (7-18)
[2016-08-28 05:53] LABS: DIFF TOTAL CELLS COUNTED 100 CELL DIFF; HEMOGLOBIN 9.1 g/dL (13.7-18.0)
[2016-08-28] MEDS: LACTATED RINGERS 1,000 ML IV SCH ×2 (07:00→21:23)
[2016-08-28 07:34] LABS: ANISOCYTOSIS 1+; VERIFY COUNTS? YES
[2016-08-28 08:05] VITALS: BP 147/79
[2016-08-28] MEDS: DIPHENHYDRAMINE 50 MG/ML, 1ML IV PRN (08:08)
[2016-08-28] MEDS: VANCOMYCIN 2,200 MG in SODIUM CHLORIDE 0.9% 500 ML IV SCH (08:08)
[2016-08-28] MEDS: METOPROLOL TARTRATE 25 MG TABLET PO SCH (08:08)
[2016-08-28] MEDS: GABAPENTIN 300 MG CAPSULE PO SCH ×2 (08:09→21:23)
[2016-08-28] MEDS: METHADONE 10 MG TABLET PO SCH (08:10)
[2016-08-28 13:23] VITALS: BP 97/57
[2016-08-28] MEDS: CEFTRIAXONE PMX 2GM/50ML 50 ML IV SCH (16:35)
[2016-08-28] MEDS: ENOXAPARIN 40 MG/0.4 ML SQ SCH (18:03)
[2016-08-28] MEDS: PROMETHAZINE 25 MG/ML, 1ML IM PRN ×2 (18:03→22:24)
[2016-08-28 19:40] VITALS: BP 106/67
[2016-08-29 01:39] LABS: HEMOGLOBIN 8.9 g/dL (13.7-18.0)
[2016-08-29 01:48] LABS: BLOOD UREA NITROGEN 9 mg/dL (7-18)
[2016-08-29 02:29] VITALS: BP 125/74
[2016-08-29] MEDS: METRONIDAZOLE PMX 500MG/100ML 100 ML IV SCH ×3 (02:29→18:18)
[2016-08-29] MEDS: LACTATED RINGERS 1,000 ML IV SCH ×2 (06:39→17:07)
[2016-08-29 07:41] VITALS: BP 134/74
[2016-08-29] MEDS: VANCOMYCIN 2,200 MG in SODIUM CHLORIDE 0.9% 500 ML IV SCH (07:41)
[2016-08-29] MEDS: METHADONE 10 MG TABLET PO SCH (08:18)
[2016-08-29] MEDS: GABAPENTIN 300 MG CAPSULE PO SCH ×2 (08:19→19:58)
[2016-08-29] MEDS: METOPROLOL TARTRATE 25 MG TABLET PO SCH (08:19)
[2016-08-29] MEDS: DIPHENHYDRAMINE 50 MG/ML, 1ML IV PRN ×2 (10:16→17:08)
[2016-08-29] MEDS: ONDANSETRON 2MG/ML, 2ML IV PRN (13:17)
[2016-08-29 13:39] VITALS: BP 116/72
[2016-08-29] MEDS: CEFTRIAXONE PMX 2GM/50ML 50 ML IV SCH (17:08)
[2016-08-29] MEDS: ENOXAPARIN 40 MG/0.4 ML SQ SCH (18:18)
[2016-08-29] MEDS: PROMETHAZINE 25 MG/ML, 1ML IM PRN (19:58)
[2016-08-29 20:26] VITALS: BP 109/59
[2016-08-30] MEDS: METRONIDAZOLE PMX 500MG/100ML 100 ML IV SCH ×3 (02:27→21:23)
[2016-08-30] MEDS: DIPHENHYDRAMINE 50 MG/ML, 1ML IV PRN ×4 (02:27→21:24)
[2016-08-30 03:06] VITALS: BP 117/65
[2016-08-30] MEDS: LACTATED RINGERS 1,000 ML IV SCH ×3 (05:15→21:24)
[2016-08-30 06:32] LABS: HEMOGLOBIN 9.1 g/dL (13.7-18.0)
[2016-08-30 06:37] LABS: BLOOD UREA NITROGEN 6 mg/dL (7-18)
[2016-08-30 07:21] VITALS: BP 107/64
[2016-08-30] MEDS: GABAPENTIN 300 MG CAPSULE PO SCH ×2 (08:49→21:24)
[2016-08-30] MEDS: METHADONE 10 MG TABLET PO SCH (08:49)
[2016-08-30] MEDS: METOPROLOL TARTRATE 25 MG TABLET PO SCH (08:50)
[2016-08-30] MEDS ORDERED: VANCOMYCIN 2,000 MG in SODIUM CHLORIDE 0.9% 500 ML IV SCH (09:00)
[2016-08-30] MEDS: PROMETHAZINE 25 MG/ML, 1ML IM PRN ×2 (10:58→18:43)
[2016-08-30] MEDS: ONDANSETRON 2MG/ML, 2ML IV PRN ×2 (11:51→17:59)
[2016-08-30 14:05] VITALS: BP 117/72
[2016-08-30] MEDS: CEFTRIAXONE PMX 2GM/50ML 50 ML IV SCH (17:23)
[2016-08-30] MEDS: ENOXAPARIN 40 MG/0.4 ML SQ SCH (18:57)
[2016-08-30 19:24] VITALS: BP 114/63
[2016-08-30 19:25] VITALS: BP 103/71
[2016-08-31 05:02] VITALS: BP 132/76
[2016-08-31] MEDS: DIPHENHYDRAMINE 50 MG/ML, 1ML IV PRN ×3 (05:06→22:04)
[2016-08-31] MEDS: METRONIDAZOLE PMX 500MG/100ML 100 ML IV SCH ×2 (05:07→12:53)
[2016-08-31 05:58] LABS: HEMOGLOBIN 9.7 g/dL (13.7-18.0)
[2016-08-31] MEDS: PROMETHAZINE 25 MG/ML, 1ML IM PRN ×2 (06:17→21:03)
[2016-08-31 06:20] LABS: BLOOD UREA NITROGEN 5 mg/dL (7-18)
[2016-08-31 07:45] VITALS: BP 121/76
[2016-08-31] MEDS: METOPROLOL TARTRATE 25 MG TABLET PO SCH (09:00)
[2016-08-31] MEDS: LACTATED RINGERS 1,000 ML IV SCH ×2 (09:25→17:43)
[2016-08-31] MEDS: GABAPENTIN 300 MG CAPSULE PO SCH ×2 (09:26→21:03)
[2016-08-31] MEDS: METHADONE 10 MG TABLET PO SCH (09:26)
[2016-08-31] MEDS: ONDANSETRON 2MG/ML, 2ML IV PRN (11:39)
[2016-08-31] MEDS ORDERED: CATHFLO-ALTEPLASE 2 MG/2 ML CATHFLUSH ONE (13:00)
[2016-08-31 13:14] VITALS: BP 107/67
[2016-08-31] MEDS: CEFTRIAXONE PMX 2GM/50ML 50 ML IV SCH (17:43)
[2016-08-31] MEDS: ENOXAPARIN 40 MG/0.4 ML SQ SCH (18:22)
[2016-08-31 20:01] VITALS: BP 132/80
[2016-08-31] MEDS: SULFAMETH./TRIMETHOPRIM DS 800MG/160MG TABLET PO SCH (22:00)
[2016-09-01 02:17] VITALS: BP 132/78
[2016-09-01] MEDS: PROMETHAZINE 25 MG/ML, 1ML IM PRN (02:38)
[2016-09-01 03:15] LABS: HEMOGLOBIN 9.1 g/dL (13.7-18.0)
[2016-09-01 03:23] LABS: BLOOD UREA NITROGEN 7 mg/dL (7-18)
[2016-09-01 07:43] VITALS: BP 134/75
[2016-09-01] MEDS: GABAPENTIN 300 MG CAPSULE PO SCH (09:02)
[2016-09-01] MEDS: METHADONE 10 MG TABLET PO SCH (09:03)
[2016-09-01] MEDS: METOPROLOL TARTRATE 25 MG TABLET PO SCH (09:03)
[2016-09-01] MEDS: SULFAMETH./TRIMETHOPRIM DS 800MG/160MG TABLET PO SCH (09:03)
[2016-09-01 13:19] VITALS: BP 109/69
[2016-09-01 15:22] VITALS: BP 127/84
== END 2016-09-01 15:50 | disposition home health service (06) | DRG 908 ==
LOC: OUT 08:15 → 4NOR 17:09 → OUT 17:11 → 4NOR 17:11
PROVIDERS: ADMIT Surgery; ATTEND Surgery
PROC: 0WUF4JZ Supplement Abdominal Wall with Synthetic Substitute, Percutaneous Endoscopic Approach (ICD-10-PCS; principal; 2016-08-24 10:00)
PROC: 02HV33Z Insertion of Infusion Device into Superior Vena Cava, Percutaneous Approach (ICD-10-PCS; 2016-08-27)
PROC: B5181ZA Fluoroscopy of Superior Vena Cava using Low Osmolar Contrast, Guidance (ICD-10-PCS; 2016-08-27)
DX: T81.30XA Disruption of wound, unspecified, initial encounter (principal); G82.20 Paraplegia, unspecified; R65.10 Systemic inflammatory response syndrome (SIRS) of non-infectious origin without acute organ dysfunction; E44.1 Mild protein-calorie malnutrition; Y83.8 Other surgical procedures as the cause of abnormal reaction of the patient, or of later complication, without mention of misadventure at the time of the procedure; K46.9 Unspecified abdominal hernia without obstruction or gangrene; K43.5 Parastomal hernia without obstruction or gangrene; Y92.9 Unspecified place or not applicable; Z93.0 Tracheostomy status; Z86.14 Personal history of Methicillin resistant Staphylococcus aureus infection
CPT/HCPCS: 36415; 36569; 74022; 76937; 77001; 80048; 80053; 80202; 82040; 82962; 83735; 84100; 84484; 85025; 86850; 86900; 86923; 93005; J0171; J0690; J0696; J1100; J1170; J1650; J2250; J2405; J2550; J2704; J2710; J2997; J3010; J3370; J3480; J3490; J7120; C1751; C1762; J1200; J2370; J3475; J7040; Q0163

== ENCOUNTER → 2016-09-13 | Outpatient (CLI) | payer MEDICARE | END | disposition home or self-care (01) | LOC: WOUND 09:05 | PROVIDERS: ATTEND Physician Assistant | DX: T81.31XA Disruption of external operation (surgical) wound, not elsewhere classified, initial encounter (principal); L89.312 Pressure ulcer of right buttock, stage 2; K43.5 Parastomal hernia without obstruction or gangrene; G82.21 Paraplegia, complete; I10 Essential (primary) hypertension; J44.9 Chronic obstructive pulmonary disease, unspecified; F06.4 Anxiety disorder due to known physiological condition; Z93.2 Ileostomy status; E66.01 Morbid (severe) obesity due to excess calories; E44.1 Mild protein-calorie malnutrition; Z68.31 Body mass index [BMI] 31.0-31.9, adult; F17.210 Nicotine dependence, cigarettes, uncomplicated; Y92.9 Unspecified place or not applicable; Y83.8 Other surgical procedures as the cause of abnormal reaction of the patient, or of later complication, without mention of misadventure at the time of the procedure | CPT/HCPCS: 97597; G0463; WOU0463 ==

== ENCOUNTER → 2016-09-20 | Outpatient (CLI) | payer MEDICARE | END | disposition home or self-care (01) | LOC: WOUND 11:00 | PROVIDERS: ATTEND Physician Assistant | DX: T81.31XD Disruption of external operation (surgical) wound, not elsewhere classified, subsequent encounter (principal); L89.312 Pressure ulcer of right buttock, stage 2; K43.5 Parastomal hernia without obstruction or gangrene; Z93.2 Ileostomy status; G82.21 Paraplegia, complete; I10 Essential (primary) hypertension; J44.9 Chronic obstructive pulmonary disease, unspecified; F06.4 Anxiety disorder due to known physiological condition; E44.1 Mild protein-calorie malnutrition; Z68.31 Body mass index [BMI] 31.0-31.9, adult; F17.210 Nicotine dependence, cigarettes, uncomplicated; Y83.8 Other surgical procedures as the cause of abnormal reaction of the patient, or of later complication, without mention of misadventure at the time of the procedure | CPT/HCPCS: 97597 ==

== ENCOUNTER → 2016-09-27 | Outpatient (CLI) | payer MEDICARE | END | disposition home or self-care (01) | LOC: WOUND 10:00 | PROVIDERS: ATTEND Physician Assistant | DX: T81.31XD Disruption of external operation (surgical) wound, not elsewhere classified, subsequent encounter (principal); L89.312 Pressure ulcer of right buttock, stage 2; K43.5 Parastomal hernia without obstruction or gangrene; Z93.2 Ileostomy status; G82.21 Paraplegia, complete; I10 Essential (primary) hypertension; J44.9 Chronic obstructive pulmonary disease, unspecified; F06.4 Anxiety disorder due to known physiological condition; E44.1 Mild protein-calorie malnutrition; E66.01 Morbid (severe) obesity due to excess calories; Z68.31 Body mass index [BMI] 31.0-31.9, adult; F17.210 Nicotine dependence, cigarettes, uncomplicated; Y83.8 Other surgical procedures as the cause of abnormal reaction of the patient, or of later complication, without mention of misadventure at the time of the procedure | CPT/HCPCS: 97597 ==

== ENCOUNTER → 2016-10-04 | Outpatient (CLI) | payer MEDICARE | END | disposition home or self-care (01) | LOC: WOUND 10:18 | PROVIDERS: ATTEND Physician Assistant | DX: T81.31XD Disruption of external operation (surgical) wound, not elsewhere classified, subsequent encounter (principal); L89.312 Pressure ulcer of right buttock, stage 2; K43.5 Parastomal hernia without obstruction or gangrene; G82.21 Paraplegia, complete; I10 Essential (primary) hypertension; E44.1 Mild protein-calorie malnutrition; J44.9 Chronic obstructive pulmonary disease, unspecified; F06.4 Anxiety disorder due to known physiological condition; E66.01 Morbid (severe) obesity due to excess calories; Z68.31 Body mass index [BMI] 31.0-31.9, adult; F17.210 Nicotine dependence, cigarettes, uncomplicated; Y83.8 Other surgical procedures as the cause of abnormal reaction of the patient, or of later complication, without mention of misadventure at the time of the procedure | CPT/HCPCS: 97605 ==

== ENCOUNTER → 2016-10-11 | Outpatient (CLI) | payer MEDICARE | END | disposition home or self-care (01) | LOC: WOUND 09:55 | PROVIDERS: ATTEND Physician Assistant | DX: T81.32XD Disruption of internal operation (surgical) wound, not elsewhere classified, subsequent encounter (principal); L89.312 Pressure ulcer of right buttock, stage 2; G82.21 Paraplegia, complete; I10 Essential (primary) hypertension; F06.4 Anxiety disorder due to known physiological condition; K43.5 Parastomal hernia without obstruction or gangrene; J44.9 Chronic obstructive pulmonary disease, unspecified; F17.200 Nicotine dependence, unspecified, uncomplicated; Z93.2 Ileostomy status; Z99.3 Dependence on wheelchair; Y83.8 Other surgical procedures as the cause of abnormal reaction of the patient, or of later complication, without mention of misadventure at the time of the procedure; E66.01 Morbid (severe) obesity due to excess calories; Z68.31 Body mass index [BMI] 31.0-31.9, adult | CPT/HCPCS: G0463; WOU0463 ==

== ENCOUNTER → 2016-10-18 | Outpatient (CLI) | payer MEDICARE | LOC: WOUND 10:05 | PROVIDERS: ATTEND Physician Assistant | DX: T81.32XD Disruption of internal operation (surgical) wound, not elsewhere classified, subsequent encounter (principal); L89.312 Pressure ulcer of right buttock, stage 2; K43.5 Parastomal hernia without obstruction or gangrene; G82.21 Paraplegia, complete; J44.9 Chronic obstructive pulmonary disease, unspecified; I10 Essential (primary) hypertension; F06.4 Anxiety disorder due to known physiological condition; F17.200 Nicotine dependence, unspecified, uncomplicated; E66.01 Morbid (severe) obesity due to excess calories; Z68.31 Body mass index [BMI] 31.0-31.9, adult; Z86.14 Personal history of Methicillin resistant Staphylococcus aureus infection; Z99.3 Dependence on wheelchair; Z93.2 Ileostomy status; Y83.8 Other surgical procedures as the cause of abnormal reaction of the patient, or of later complication, without mention of misadventure at the time of the procedure | CPT/HCPCS: 11042 ==

== ENCOUNTER → 2016-10-25 | Outpatient (CLI) | payer MEDICARE | END | disposition home or self-care (01) | LOC: WOUND 09:57 | PROVIDERS: ATTEND Physician Assistant | DX: T81.31XD Disruption of external operation (surgical) wound, not elsewhere classified, subsequent encounter (principal); L89.312 Pressure ulcer of right buttock, stage 2; K43.5 Parastomal hernia without obstruction or gangrene; Z93.2 Ileostomy status; G82.21 Paraplegia, complete; I10 Essential (primary) hypertension; J44.9 Chronic obstructive pulmonary disease, unspecified; F06.4 Anxiety disorder due to known physiological condition; Z68.31 Body mass index [BMI] 31.0-31.9, adult; E44.1 Mild protein-calorie malnutrition; Z86.14 Personal history of Methicillin resistant Staphylococcus aureus infection; F17.210 Nicotine dependence, cigarettes, uncomplicated; Y83.8 Other surgical procedures as the cause of abnormal reaction of the patient, or of later complication, without mention of misadventure at the time of the procedure | CPT/HCPCS: 11042 ==

== ENCOUNTER → 2016-11-02 | Outpatient (CLI) | payer MEDICARE ==
[~2016-11-02] MED LIST changes: +HYDR-3144 PO; +LACT1CAP40 PO
== END | disposition home or self-care (01) ==
LOC: WOUND 10:00
PROVIDERS: ATTEND Internal Medicine
DX: T81.31XD Disruption of external operation (surgical) wound, not elsewhere classified, subsequent encounter (principal); K43.5 Parastomal hernia without obstruction or gangrene; Z93.2 Ileostomy status; G82.21 Paraplegia, complete; I10 Essential (primary) hypertension; J44.9 Chronic obstructive pulmonary disease, unspecified; E66.01 Morbid (severe) obesity due to excess calories; Z68.31 Body mass index [BMI] 31.0-31.9, adult; F41.9 Anxiety disorder, unspecified; Z86.14 Personal history of Methicillin resistant Staphylococcus aureus infection; F17.210 Nicotine dependence, cigarettes, uncomplicated; Y83.8 Other surgical procedures as the cause of abnormal reaction of the patient, or of later complication, without mention of misadventure at the time of the procedure
CPT/HCPCS: 97597

== ENCOUNTER → 2016-11-09 | Outpatient (CLI) | payer MEDICARE | END | disposition home or self-care (01) | LOC: WOUND 10:30 | PROVIDERS: ATTEND Physician Assistant | DX: T81.31XD Disruption of external operation (surgical) wound, not elsewhere classified, subsequent encounter (principal); G82.21 Paraplegia, complete; Z93.2 Ileostomy status; K43.5 Parastomal hernia without obstruction or gangrene; F41.9 Anxiety disorder, unspecified; J44.9 Chronic obstructive pulmonary disease, unspecified; I10 Essential (primary) hypertension; E66.01 Morbid (severe) obesity due to excess calories; Z68.31 Body mass index [BMI] 31.0-31.9, adult; F17.210 Nicotine dependence, cigarettes, uncomplicated; Z86.14 Personal history of Methicillin resistant Staphylococcus aureus infection; Y83.8 Other surgical procedures as the cause of abnormal reaction of the patient, or of later complication, without mention of misadventure at the time of the procedure | CPT/HCPCS: 97597 ==

== ENCOUNTER → 2016-11-10 | Outpatient (CLI) | payer MEDICARE ==
[2016-11-10 10:56] LABS: BLOOD UREA NITROGEN 10 mg/dL (7-18)
[2016-11-10 11:01] LABS: ASPARTATE AMINO TRANSFERASE 9 U/L (15-37)
== END | disposition home or self-care (01) ==
LOC: STAR 09:39
PROVIDERS: ATTEND Surgery
DX: Z01.818 Encounter for other preprocedural examination (principal)
CPT/HCPCS: 36415; 80053; 93005

== ENCOUNTER 2016-11-16 07:39 | Day surgery (SDC) | payer MEDICARE ==
[~2016-11-16] VITALS: Ht 177.8 cm; Wt 89.0 kg
[2016-11-16] MEDS ORDERED: FENTANYL PF 250 MCG/5ML ONE (07:51)
[2016-11-16] MEDS ORDERED: MIDAZOLAM 1 MG/ML, 2ML ONE (07:51)
[2016-11-16 08:47] VITALS: BP 99/63
[2016-11-16] MEDS ORDERED: LACTATED RINGERS 1,000 ML IV SCH (08:47)
[2016-11-16] MEDS ORDERED: LIDOCAINE 1%, 2ML SQ PRN (09:00)
[2016-11-16] MEDS ORDERED: BACITRACIN 50,000 UNIT ONE (09:00)
[2016-11-16] MEDS ORDERED: BUPIVACAINE/PF-EPI 0.5% 1:200K ONE (09:00)
[2016-11-16] MEDS ORDERED: GLYCOPYRROLATE 0.2MG/1ML ONE (09:26)
[2016-11-16] MEDS ORDERED: PROPOFOL 10 MG/ML, 20ML ONE (09:26)
[2016-11-16] MEDS ORDERED: NEOSTIGMINE 1 MG/ML, 10ML ONE (09:26)
[2016-11-16] MEDS ORDERED: ROCURONIUM 10 MG/ML ONE (09:26)
[2016-11-16] MEDS ORDERED: CEFAZOLIN 1,000 MG ONE (09:26)
[2016-11-16] MEDS ORDERED: LABETALOL 5MG/ML, 20ML IV PRN (09:30)
[2016-11-16] MEDS ORDERED: OXYcodone 5 MG/5 ML ORAL.SOL UDC PO PRN (09:30)
[2016-11-16] MEDS ORDERED: PROMETHAZINE 25 MG/ML, 1ML IV PRN (09:30)
[2016-11-16] MEDS ORDERED: FENTANYL PF 100 MCG/2ML IV PRN (09:30)
[2016-11-16] MEDS ORDERED: HYDROmorphone 1 MG/ML, 1ML IV PRN (09:30)
[2016-11-16] MEDS ORDERED: MEPERIDINE/PF 25MG/0.5ML IVPush PRN (09:30)
[2016-11-16] MEDS ORDERED: hydrALAzine 20 MG/ML, 1ML IV PRN (09:30)
[2016-11-16] MEDS ORDERED: ONDANSETRON 2MG/ML, 2ML IVPush PRN (09:30)
[2016-11-16] MEDS ORDERED: ACETAMINOPHEN 325 MG TABLET PO PRN (09:30)
[2016-11-16] MEDS ORDERED: FENTANYL PF 100 MCG/2ML ONE (11:03)
[2016-11-16] MEDS ORDERED: OXYcodone 5 MG/5 ML ORAL.SOL UDC ONE (11:04)
== END 2016-11-16 12:15 ==
LOC: OUT 07:39
PROVIDERS: ATTEND Surgery
DX: T81.89XA Other complications of procedures, not elsewhere classified, initial encounter (principal); J44.9 Chronic obstructive pulmonary disease, unspecified; F41.9 Anxiety disorder, unspecified; E11.9 Type 2 diabetes mellitus without complications; I10 Essential (primary) hypertension; Y83.9 Surgical procedure, unspecified as the cause of abnormal reaction of the patient, or of later complication, without mention of misadventure at the time of the procedure; Y92.9 Unspecified place or not applicable; Z87.01 Personal history of pneumonia (recurrent); Z98.890 Other specified postprocedural states; Z93.3 Colostomy status; Z88.0 Allergy status to penicillin; Z86.73 Personal history of transient ischemic attack (TIA), and cerebral infarction without residual deficits; Z83.3 Family history of diabetes mellitus
CPT/HCPCS: 11043; 82962; J0690; J2250; J2704; J2710; J3010; J3490; J7120

== ENCOUNTER → 2018-08-31 | Outpatient (CLI) | payer MEDICARE ==
[~2018-08-31] MED LIST changes: +CLON0.5T PO; -GABA600T2 PO; +GABA600T7 PO; -HYDR-3144 PO; +HYDR-3245 PO; +METF500T17 PO; -METF500T4 PO; -METH-356 PO; +METH10TA2 PO; +OXYC10TA6 PO; +phenergan PO
[2018-08-31 14:34] LABS: BASOPHILS # (AUTO) 0.05 x10^3/uL (0-0.1); BASOPHILS % (AUTO) 0 % (0-1); EOSINOPHILS # (AUTO) 0.62 x10^3/uL (0-0.4); EOSINOPHILS % (AUTO) 5 % (1-7); LYMPHOCYTES # (AUTO) 3.06 x10^3/uL (1-3.4); LYMPHOCYTES % (AUTO) 24 % (22-44); MD NO; MEAN CORPUSCULAR HEMOGLOBIN 30.1 pg (27.5-34.5); MEAN CORPUSCULAR HGB CONC 32.6 g/dL (33.2-36.2); MEAN CORPUSCULAR VOLUME 92.1 fL (81-97); MONOCYTES # (AUTO) 0.85 x10^3/uL (0.2-0.8); MONOCYTES % (AUTO) 7 % (2-9); NEUTROPHILS % (AUTO) 64 % (42-75); PLATELET COUNT 315 x10^3/uL (130-400); RED BLOOD COUNT 5.61 x10^6/uL (4.38-5.82); RED CELL DISTRIBUTION WIDTH 14.7 % (9.4-14.8)
[2018-08-31 14:46] LABS: ALANINE AMINOTRANSFERASE 22 U/L (12-78); ALBUMIN 3.2 g/dL (3.4-5.0); ANION GAP 4 mmol/L (5-15); CALCIUM 8.8 mg/dL (8.5-10.1); CHLORIDE 107 mmol/L (98-107); CREATININE 0.63 mg/dL (0.7-1.3)
[2018-08-31 14:49] LABS: ALKALINE PHOSPHATASE 128 U/L (45-117); BILIRUBIN,TOTAL 0.2 mg/dL (0.2-1.0); TOTAL PROTEIN 7.1 g/dL (6.4-8.2)
== END | disposition home or self-care (01) ==
LOC: STAR 13:21
PROVIDERS: ATTEND Surgery
DX: Z01.818 Encounter for other preprocedural examination (principal)
CPT/HCPCS: 36415; 80053; 85025; 93005

== ENCOUNTER 2020-01-01 11:17 | Outpatient (CLI) | payer MEDICARE ==
[~2020-01-01 11:17] MED LIST changes: +ACET325T14 PO; +ACID1TAB7 PO; +CALC200T24 PO; +CARV6.2512 PO; +ERGO500017 PO; +FERR-51 PO; +GUAI200T37 PO; +HYDR-3246 PO; -HYDR-3307 PO; +PANT40TA6 PO
== END 2020-01-01 23:59 | disposition home or self-care (01) ==
LOC: STAR 11:17
PROVIDERS: ATTEND Nurse Practitioner Family
DX: Z01.818 Encounter for other preprocedural examination (principal); R94.31 Abnormal electrocardiogram [ECG] [EKG]; Z79.891 Long term (current) use of opiate analgesic
CPT/HCPCS: 93005

== ENCOUNTER → 2020-03-17 | Outpatient (CLI) | payer MEDICARE | END | disposition home or self-care (01) | LOC: WOUND 09:27 | PROVIDERS: ATTEND Internal Medicine | DX: L89.43 Pressure ulcer of contiguous site of back, buttock and hip, stage 3 (principal); J44.9 Chronic obstructive pulmonary disease, unspecified; G82.20 Paraplegia, unspecified; I10 Essential (primary) hypertension; F41.1 Generalized anxiety disorder; E88.81 Metabolic syndrome and other insulin resistance; F11.20 Opioid dependence, uncomplicated; G89.4 Chronic pain syndrome; F17.210 Nicotine dependence, cigarettes, uncomplicated; Z93.3 Colostomy status; Z88.0 Allergy status to penicillin | CPT/HCPCS: 97597; G0463 ==

== ENCOUNTER → 2020-04-09 | Outpatient (CLI) | payer MEDICARE | END | disposition home or self-care (01) | LOC: WOUND 13:52 | PROVIDERS: ATTEND Internal Medicine | DX: T81.31XD Disruption of external operation (surgical) wound, not elsewhere classified, subsequent encounter (principal); L89.43 Pressure ulcer of contiguous site of back, buttock and hip, stage 3; J44.9 Chronic obstructive pulmonary disease, unspecified; G82.20 Paraplegia, unspecified; I10 Essential (primary) hypertension; E88.81 Metabolic syndrome and other insulin resistance; G89.4 Chronic pain syndrome; F41.1 Generalized anxiety disorder; F11.20 Opioid dependence, uncomplicated; F17.210 Nicotine dependence, cigarettes, uncomplicated; Z93.3 Colostomy status; Z93.2 Ileostomy status; Y83.8 Other surgical procedures as the cause of abnormal reaction of the patient, or of later complication, without mention of misadventure at the time of the procedure | CPT/HCPCS: 97597 ==

== ENCOUNTER → 2020-04-23 | Outpatient (CLI) | payer MEDICARE | END | disposition home or self-care (01) | LOC: WOUND 12:44 | PROVIDERS: ATTEND Internal Medicine | DX: T81.31XD Disruption of external operation (surgical) wound, not elsewhere classified, subsequent encounter (principal); L89.43 Pressure ulcer of contiguous site of back, buttock and hip, stage 3; J44.9 Chronic obstructive pulmonary disease, unspecified; G82.20 Paraplegia, unspecified; I10 Essential (primary) hypertension; E88.81 Metabolic syndrome and other insulin resistance; G89.4 Chronic pain syndrome; F41.1 Generalized anxiety disorder; F11.20 Opioid dependence, uncomplicated; F17.210 Nicotine dependence, cigarettes, uncomplicated; Z93.3 Colostomy status; Z93.2 Ileostomy status; Y83.8 Other surgical procedures as the cause of abnormal reaction of the patient, or of later complication, without mention of misadventure at the time of the procedure; Z88.0 Allergy status to penicillin | CPT/HCPCS: G0463 ==